=== PATIENT | male | born 1950 ===

== ENCOUNTER 2016-07-28 12:17 | Day surgery (SDC) | payer MEDICARE, OTHER ==
[2016-07-27 13:10] VITALS: BMI 28.4
--- NOTE | 2016-07-28 13:26 | RAD ---
HISTORY: STAT O.R CXR DONE IN [facility].. COMPARISON: None available. TECHNIQUE: Chest PA and lateral FINDINGS: LUNGS: No focal consolidation. Please note that chest x-ray has limited sensitivity for the detection of pulmonary masses. PLEURA: No significant pleural effusion identified. No definite pneumothorax . CARDIOVASCULAR: Heart size appears within normal limits. OSSEOUS STRUCTURES: Mild degenerative changes of the spine. VISUALIZED UPPER ABDOMEN: Unremarkable. OTHER FINDINGS: None. IMPRESSION: No focal consolidation, significant pleural effusion, or definite pneumothorax identified.
[2016-07-28] MEDS ORDERED: Propofol 10 mg/ml Inj (20 ML) ONE (14:58)
[2016-07-28] MEDS ORDERED: Midazolam 2 MG/2 ML VIAL ONE (14:58)
[2016-07-28] MEDS ORDERED: Lactated Ringer's 1,000 ML IV ONE ×2 (14:59→16:02)
[2016-07-28] MEDS ORDERED: cefTRIAXone IV 1 gm in Dextros 50 ML IVPB ONE (15:07)
[2016-07-28] MEDS ORDERED: HYDROmorphone 0.5 mg/0.5 ml ISec IVP PRN (16:08)
[2016-07-28] MEDS ORDERED: Oxycodone/Acetaminophen 5/325 mg Tab PO PRN (16:22)
[2016-07-28] MEDS ORDERED: Gentamicin 80 mg in 0.9% NS 80 MG/100 ML BAG IVPB SCH (17:00)
--- NOTE | 2016-07-28 17:29 | RAD ---
PROCEDURE: Intraoperative Fluoroscopy. HISTORY: HEMATURIA BLADDER STONE FINDINGS: Fluoroscopic assistance was provided. Approximately 2.3 seconds of fluoroscopy time utilized during this procedure. Radiation dose equals 212.0 mGy.
--- NOTE | 2016-07-28 17:32 | RAD ---
HISTORY: Bladder stone. Hematuria. Two flat plates of the abdomen performed, the 1st labeled 1 and the 2nd labeled 2. COMPARISON: No prior studies available for comparison Findings: Film labeled 1: Study shows an approximately 2.38 cm calcification overlying the right mid to inferior true pelvis. Film labeled 2: Previously noted 2.38 mm calculus overlying the right parasagittal mid to lower pelvis no longer visible. There may be some small fragments overlying the mid inferior true pelvis. Impression: Interval lithotripsy of urinary bladder calculus.
[2016-07-28 17:52] VITALS: BP 117/80; PULSE 68; RESP 20; TEMP 97.9; O2SAT 97
--- NOTE | 2016-07-31 08:56 | HP ---
HISTORY OF PRESENT ILLNESS: The patient is a very pleasant gentleman who is coming in for treatment of stones. We have a very pleasant gentleman who has voiding dysfunction, decreased flow of stream, nocturia, in complete bladder emptying, urinary retention, hematuria and was found to have a bladder stone - large , large stone. We discussed options and he is here today for removal. We also discussed prostatectomy, but for now we do stent and then further plans will follow. PAST MEDICAL AND SURGICAL HISTORY: Otherwise, unchanged other than the list on the chart. He also h as medical clearance from doctor. MEDICATIONS: See the chart. ALLERGIES: See the chart. SOCIAL HISTORY: He is here with his . PHYSICAL EXAMINATION: GENERAL: Well-nourished male, in no apparent distress. VITAL SIGNS: Within normal limits. ABDOMEN: Overall soft, nontender. GENITOURINARY: Normal phallus. There is no . 30 g prostate, soft and smooth. LABORATORIES: CT scan, labs, etc., all within normal limits. DIAGNOSES: Urinary retention, voiding dysfunction, hematuria and a large bladder calculus. We discu ssed options as follows: We are going to do our best to remove the stent with a cystolitholapaxy las er lithotripsy of his stone. I discussed stone crushing instead of open surgery which I do not recommend. I think we can get it. I explained to the patient it may take 2 times even because especially given the fact that he has a f airly large stone burden. So, I told him safety first. Most likely we will be able to get as much as we can out. And then further plans will follow. Risks and benefits were discussed at length including the need f or retreatment, and discussed the risk of bleeding and stopping, etc. In the future I am going to re commend a prostatectomy. Oscar Miller MD cc: [id number] TT: 07/30/2016 20:17:40 herminio
--- NOTE | 2016-07-31 08:58 | OP ---
PROCEDURE DATE: 07/28/2016 PREOPERATIVE DIAGNOSES: Urolithiasis, hematuria, urinary retention, voiding dysfunction. POSTOPERATIVE DIAGNOSES: Urolithiasis, hematuria, urinary retention, voiding dysfunction. PROCEDURE: Cystoscopy, cystolitholapaxy, a laser lithotripsy of a stone. I was going to try to break the stone with breaker, but really better for the stone and for the patie nt. See also the multiple pictures taken. I did an x-ray before, in the middle, and after and reall y very nice transition from a large stone on the right side of the wall to the end of the case where there is actually no visible stone. COMPLICATIONS: No complications. There was bleeding within normal limits. BLOOD LOSS: Less than 20 mL. At the termination of procedure, we left a Stark catheter in place and no obvious stone disease. INDICATIONS: See history and physical. He is a very pleasant gentleman here for the above procedure . We discussed options; laser lithotripsy, discussed outside the body treatment, discussed no treatm ent at all, we discussed open surgery. We discussed open surgery and prostatectomy, discussed stone treatment and a PVP GreenLight laser TURP. After all the options were discussed with the patient, the patient wanted to just get rid of the ston e and then further plans to follow. PROCEDURE: After obtaining informed consent, the patient was placed on the table, routine monitors p laced, timeouts were called, we confirmed patient. The patient was in a lithotomy position. Timeout s were called. Antibiotic prophylaxis was given. Cystoscope via the urethra under direct vision. Anterior ____ veru is visually occlusive about 2-3 cm, it is only about 2-3 cm, but it is a very occ lusive. Now we inspect the bladder. We see the bladder mucosa is all within relatively normal limits. At the stone, it is a fairly stuck, adherent to the wall stone, until we start working on it. Ureteral orifice identified and clearly away from this. We now provided the laser energy fiber and we used the wattage. We used about 2.5-3 joules with a f requency of about 5 MHz. We worked diligently, carefully. We made the cystoscope into almost like a continuous flow scope and then irrigated out some stone pieces. Then I actually converted over to the resectoscope and then we drained a lot more stones. We now reinspect it, there is just a little bit of some large stones left over. So we again evaluate . There is no real good stones left, there is debris all over but there is nothing visible. Also some blood is noted. It is within normal limits, but it started getting a little difficult to s ee perfectly clearly. So there is a little blood, I felt it better to stop. We can see very well, but it is just enough bl ood than I wanted to make myself stop. But I inspected carefully and did an x-ray, it really cleared the stones. At this point, I inserted a Stark catheter via the urethra without difficulty and left it to drainage . Overall, the patient tolerated without complication and I do not see any visible stones. ADDENDUM: The plan will be as follows: 1. Stark catheter to straight drainage. 2. Discharge home with a Stark catheter. 3. The trial of void to follow. 4. We are going to recommend a prostatectomy. The patient will be very well served with a GreenLigh t laser or we can consider some of the noninvasive things if some erection issues are more important. So we will discuss all this further. Oscar Miller MD cc: [id number] TT: 07/30/2016 20:50:53 jn
== END 2016-07-28 17:45 | disposition home or self-care (01) ==
LOC: C.SDS 12:17
PROVIDERS: ATTEND Urology
DX: N21.0 Calculus in bladder (principal); R33.9 Retention of urine, unspecified
CPT/HCPCS: 52317; 71020; 74020; 76000; 82365; 88300; J0696; J1580; J7120

== ENCOUNTER 2017-04-06 10:51 | Observation (INO) | payer MEDICARE, OTHER ==
[2016-07-27 13:10] VITALS: BMI 28.4
[2017-04-06] MEDS ORDERED: Propofol 10 mg/ml Inj (20 ML) ONE (17:06)
[2017-04-06] MEDS ORDERED: ePHEDrine 50 mg/ml Inj ONE (17:16)
[2017-04-06] MEDS ORDERED: HYDROmorphone 0.5 mg/0.5 ml ISec IVP PRN (18:01)
[2017-04-06] MEDS ORDERED: Oxycodone/Acetaminophen 5/325 mg Tab PO PRN (18:34)
[2017-04-06] MEDS: Ciprofloxacin 400mg/200ml D5W 400 MG/200 ML BAG IVPB SCH (18:47)
[2017-04-06 20:08] VITALS: RESP 20
[2017-04-07 02:17] VITALS: O2SAT 98
[2017-04-07] MEDS: Ciprofloxacin 400mg/200ml D5W 400 MG/200 ML BAG IVPB SCH (06:52)
[2017-04-07 09:06] VITALS: TEMP 98.2
[2017-04-07 11:35] LABS: BASO % 0.1 % (0.0-2.0); EOS # 0.1 K/uL (0.0-0.7); EOS % 1.1 % (0.0-4.0); HEMOGLOBIN 15.2 g/dL (12.0-18.0); LYMPH # 1.3 K/uL (1.0-4.3); LYMPH % 15.2 % (20.0-40.0); MEAN CORPUSCULAR HEMOGLOBIN 33.6 pg (27.0-31.0); MEAN CORPUSCULAR HGB CONC 35.4 g/dL (33.0-37.0); MEAN PLATELET VOLUME 7.4 fL (7.2-11.7); MONO # 0.6 K/uL (0.0-0.8); MONO % 6.4 % (0.0-10.0); NEUT # 6.8 K/uL (1.8-7.0); NEUT % 77.2 % (50.0-75.0); NRBC % 0.1 % (0.0-2.0); RBC 4.52 Mil/uL (4.40-5.90); RED CELL DISTRIBUTION WIDTH 12.8 % (11.5-14.5); WHITE BLOOD COUNT 8.8 K/uL (4.8-10.8)
[2017-04-07 11:47] LABS: ALB/GLOB RATIO 1.4 (1.0-2.1); ALBUMIN 3.7 g/dL (3.5-5.0); ALT/SGPT 17 U/L (21-72); AST/SGOT 33 U/L (17-59); BLOOD UREA NITROGEN 15 mg/dL (9-20); GFR AFRICAN-AMERICAN > 60; GFR NON-AFRICAN AMERICAN > 60
[2017-04-07 15:40] VITALS: BP 116/72; PULSE 70
[2017-04-08] MEDS ORDERED: Pneumococcal 23-Valent Vaccine IM ONE (10:00)
--- NOTE | 2017-04-19 08:11 | HP ---
open surgery. After discussing all the options, risk, benefits, and alternatives of procedure, they agreed for the above the procedure, PVP, green light laser. Past medical and surgical history: In an effort in preparation for today, the patient will go and see his doctor. Surgically, he is here with his , who is a candidate to his care. REVIEW OF SYSTEMS: As above. Noncontributory. No weight loss, chest pain, shortness of breath or the like. PHYSICAL EXAMINATION: GENERAL: Well-nourished male in no apparent distress. VITAL SIGNS: Within normal limits. ABDOMEN: Overall soft. No flank mass appreciated. GENITOURINARY: Normal male phallus without discharge or testicular masses. RECTAL: A 30 to 40 gm prostate, relatively soft, smooth. LABORATORY DATA: See the chart. DIAGNOSES: Voiding dysfunction, urinary retention, nocturia. We discussed the options with patient including risks, benefits and alternatives. We discussed at length the risks, specially of ejaculatory dysfunction, specifically that of retrograde ejaculation. I explained to the patient that at least 30% to 40% of the people will have it and most often when we do, it is permanent, that means that when he has relations, intimacy, etc., and he has orgasm, that will feel it, but fluid would not come out. This can also lead to erectile dysfunction even just a regular erections in performance. We discussed all these options at length. I also explained the patient risks, the various options including risk of infection, risk of retention, risk of recurrence, all of these explained at length. I also explained to the patient the benefits to the surgery of open flow of urination and better flow of urination, perhaps, better bladder emptying. Discussed the benefits of urinary capacity to the bladder. I discussed a lot of benefits to the surgical procedure, showed the patient pictures do a lot in the office. After explaining all those risks, benefits, and alternatives, he is being admitted for surgery. PLAN: 1. Antibiotic prophylactics. 2. OR now 3. We are going to arrange him for the GreenLight, laser. ADDENDUM See the operative report, the patient did very well, with a good open flow. Again, see the picture. The patient tolerated the procedure without complications. Oscar Miller MD
--- NOTE | 2017-04-19 08:20 | DS ---
REASON FOR ADMISSION: Urinary retention, hematuria, voiding dysfunction. PROCEDURE: The patient underwent PVP Greenlight, TURP. The patient is discharged to home in stable condition with an indwelling Stark catheter draining via the urethra with no complications. No blood loss. No transfusion. FINAL DIAGNOSES: Urinary retention. Oscar Miller MD
--- NOTE | 2017-04-19 09:55 | OP ---
PROCEDURE DATE: 04/06/2017 PREOPERATIVE DIAGNOSES: Urinary retention, voiding dysfunction, decreased flow of stream, and hematuria. POSTOPERATIVE DIAGNOSIS: Urinary retention, voiding dysfunction, decreased flow of stream, and hematuria. PROCEDURES: PVP, green light laser TURP. There were no complications. Blood loss is less than 25 mL. At the termination of procedure, we left a 22 Yi Stark catheter via urethra with 30 mL balloon with moderate traction. At the termination of procedure, the patient is wide open from the verumontanum on in. Multiple pictures were taken today , ureteral orifices are grossly intact. No obvious abnormalities appreciated. Pictures were taken and saved again. INDICATION: See history and physical for details. This is a very pleasant gentleman, Mr. De Oliveira.. We discussed options, voiding dysfunction. Previously, I believe, he had microwave. He has voiding difficulty, frequency and nocturia, and after discussing options with the patient, he is here now for the above-listed procedure. We made arrangements with the company to be available. The patient was given antibiotic prophylaxis and he is now . OPERATIVE FINDINGS: Normal anterior urethra, no strictures; on viewing, it is visually occlusive large 3 to 4 cm prostate. Ureteral orifice within normal limits. At the termination and pre and post, everything all gross landmarks are intact. We took multiple pictures. After confirming the positioning, at the termination of procedure, from a visually occluded prostate to a fairly open prostate. At the termination of procedure, the patient was left with Stark catheter with a moderate amount of traction. PROCEDURE: After obtaining informed consent, the patient was placed on the table in routine manner for time-out. We confirmed the patient and positioning. We introduced the cystoscope with visual obturator. Once we identified our landmarks, verumontanum 3 to 4 cm, the ureteral orifice was identified. We now began, we started with a power of 80. We worked the way up until 240. We started bladder the neck between 5 and 7, worked out quickly, gently, carefully, meticulously controlling bleeding with coags and provided laser energy. We now turned our attention, we kept along the floor. We went from 7 to 11 and we came back to the floor. We went 5 to 1, we kept working back and forth, back and forth, swiftly, carefully. Periodically checking all landmarks. We made sure we were nowhere near the bladder neck, nowhere near the verumontanum. We made sure and we worked our way to back bleeding. We then took the bladder neck. We checked for any bleeders. Everything looked good. No bleeding, we turned off all the water. We checked the verumontanum intact, we checked the ureteral orifices. We checked any prostatic bleeding. Everything looks great. Inserted Stark catheter via right urethra. I took picture of the urine flow. There was nice strong flow. The patient tolerated the procedure well without complications. The patient went to recovery room with Stark catheter in traction, having tolerated the procedure without complications. Name of the procedure by the way is PVP, green light Laser TURP, photovaporization. Oscra Miller MD
== END 2017-04-07 15:43 | disposition home or self-care (01) ==
LOC: C.SDS 10:51 → C.3T 18:30 → INTOOBSV 18:30
PROVIDERS: ADMIT Urology; ATTEND Urology
DX: N40.1 Benign prostatic hyperplasia with lower urinary tract symptoms (principal); R33.8 Other retention of urine; R31.9 Hematuria, unspecified
CPT/HCPCS: 36415; 52648; 80053; 85025; 96365; 96367; 97116; 97161; G0378; G8978; G8979; J0696; J0744; J1170

== ENCOUNTER 2017-04-10 00:42 | Emergency (ER) | payer MEDICARE, OTHER ==
[2017-04-10 00:43] VITALS: BMI 28.4
--- NOTE | 2017-04-10 00:57 | C.PDOC ---
History Of Present Illness Patient is a 66 y/o male who presents to the ED with a complaint of urinary retention since noon today. Patient notes feeling a lot of pressure and admits to undergoing prostate surgery on 04/06. Patient has no other physical complaints at this time. Time Seen by Provider: 04/10/17 00:57 Chief Complaint (Nursing): Male Genitourinary History Per: Patient History/Exam Limitations: no limitations Current Symptoms Are (Timing): Still Present Severity: Moderate Pain Scale Rating Of: 4 Quality Of Discomfort: Pressure Recent travel outside of the [place]: No Past Medical History Reviewed: Historical Data, Nursing Documentation, Vital Signs Vital Signs: Last Vital Signs Temp 98.9 F 04/10/17 00:48 Pulse 74 04/10/17 00:48 Resp 14 04/10/17 00:48 BP 114/78 04/10/17 00:48 Pulse Ox 96 04/10/17 01:19 - Medical History PMH: Pneumonia (2 years ago ) Denies: Chronic Kidney Disease Surgical History: No Surg Hx Family History: States: No Known Family Hx - Social History Hx Tobacco Use: Yes (heavy smoker) Hx Alcohol Use: Yes Hx Substance Use: No - Immunization History Hx Tetanus Toxoid Vaccination: Yes Hx Influenza Vaccination: Yes Hx Pneumococcal Vaccination: No Review Of Systems Gastrointestinal: Positive for: Other (abdominal pressure ) Genitourinary: Positive for: Other (urinary retention) Physical Exam - Physical Exam Appears: Well, Non-toxic, No Acute Distress Skin: Warm, Dry Head: Normacephalic Oral Mucosa: Moist Chest: Symmetrical Cardiovascular: Rhythm Regular, No Murmur Respiratory: No Rales, No Rhonchi, No Wheezing Gastrointestinal/Abdominal: Soft, Tenderness (suprapubic tenderness), Distention (distention of urinary bladder palpated) Neurological/Psych: Oriented x3, Normal Speech, Normal Cognition ED Course And Treatment O2 Sat by Pulse Oximetry: 96 Progress Note: 18 american hoffman catheter placed without difficulty, collecting approximately 400 ccs of urine. On re-evaluation, patient feels relieved. Disposition Counseled Patient/Family Regarding: Studies Performed, Diagnosis, Need For Followup - Disposition Referrals: Rk Miller MD [Staff Provider] - Disposition: HOME/ ROUTINE Disposition Time: 00:57 Condition: FAIR Instructions: How to Care for Your Hoffman Catheter, Male, Urinary Retention (DC) Forms: [employer] (Croatian) Print Language: FIJIAN - Clinical Impression Clinical Impression: Urinary retention, Hoffman catheter in place - Scribe Statement The provider has reviewed the documentation as recorded by the Scribe Shy Garza All medical record entries made by the Scribe were at my direction and personally dictated by me. I have reviewed the chart and agree that the record accurately reflects my personal performance of the history, physical exam, medical decision making, and the department course for this patient. I have also personally directed, reviewed, and agree with the discharge instructions and disposition.
[2017-04-10 02:42] VITALS: BP 118/76; PULSE 60; RESP 22; TEMP 98; O2SAT 95
== END 2017-04-10 02:34 | disposition home or self-care (01) ==
LOC: C.ER 00:42
DX: R33.9 Retention of urine, unspecified (principal); F17.210 Nicotine dependence, cigarettes, uncomplicated